=== PATIENT | male | born 1990 | race Caucasian/White ===

== ENCOUNTER 2018-01-23 18:18 | Emergency (ER) | payer SELFPAY ==
[~2018-01-23] VITALS: Ht 177.8 cm; Wt 123.8 kg
[2018-01-23 18:31] VITALS: BP 144/89; TEMP 99.4
[2018-01-23] MEDS ORDERED: CEPHALEXIN500 M1 PO (19:46)
[2018-01-23 20:05] VITALS: PULSE 82
== END 2018-01-23 20:05 | disposition home or self-care (01) ==
LOC: COL.ER 18:18
DX: J02.9 Acute pharyngitis, unspecified (principal); F17.210 Nicotine dependence, cigarettes, uncomplicated